=== PATIENT | male | born 1950 | race Caucasian/White ===

== ENCOUNTER 2016-12-21 11:16 | Emergency (ER) | payer MEDICARE, BC ==
[2016-12-21 11:22] VITALS: BP 127/82; PULSE 95; RESP 16; TEMP 98.1
[2016-12-21] MEDS ORDERED: fentaNYL (PF) 50 MCG/ML 2 ML AMP IM STA (12:00)
[2016-12-21] MEDS ORDERED: ONDANSETRON 4 MG/2 ML VIAL IM STA (12:01)
--- NOTE | 2016-12-21 12:03 | ED ---
Back Pain [facility] - General Chief Complaint: Back Pain/Injury Stated Complaint: NERVE PAIN ALL OVER Time Seen by Provider: 12/21/16 11:35 Source: patient Limitations: no limitations - History of Present Illness Initial Comments: This patient's a 66-year-old man who presents to be evaluated for perianal pain. The patient brings paperwork from a pain management clinic, which shows a diagnosis of complex regional pain syndrome (type 2) and of a Tarlov cyst. He states that he is not due to see his new pain management physician which will be Dr. Toscano for about 3 weeks. The patient states that he has been having problems with this pain for a year and that he has had MRIs performed. He does note that he had been on methadone therapy until early October and that this was stopped. Patient believes that the pain has been more notable since the medication was stopped. He states that the pains had limited sleep last night and so he requests some relief in order to rest. The patient denies any new neurologic symptoms. He has not had any change in bladder or bowel control. He is able to walk. No weakness of the legs. He does occasionally get some paresthesias but he describes these as being of both feet and both hands. The patient states that the numbness has been present since he had prostate surgery in 2000. MD Complaint: back pain -: year(s) Similar Symptoms Previously: Yes Place: home Radiation: none Severity: severe Quality: burning, aching Consistency: constant Improves With: none Worsens With: none Associated Symptoms: denies other symptoms - Related Data Home Medications Medication Instructions Recorded Confirmed Aspirin 81 mg PO DAILY 04/23/14 09/22/16 Docusate Sodium [Dulcolax Stool 200 mg PO BID 10/26/14 09/22/16 Softener] Acetaminophen Tab [Tylenol] 1,000 mg PO Q6HR PRN 02/23/15 09/22/16 Gabapentin [Neurontin] 800 mg PO QID 02/23/15 09/22/16 L.acidoph/B.long/L.plant/B.lac 1 cap PO DAILY 02/23/15 09/22/16 [Probiotic Acidophilus Beads] Lactulose 10 gm PO BID PRN 02/23/15 09/22/16 Linaclotide [Linzess] 290 mcg PO AC-BRKFST PRN 02/23/15 09/22/16 Multivitamins, Thera [Multivitamin] 1 tab PO DAILY 02/23/15 09/22/16 Methadone [Dolophine] 5 mg PO Q8H 09/22/16 09/22/16 Previous Rx's Medication Instructions Recorded DULoxetine HCL [Cymbalta] 60 mg PO DAILY #30 capsule. 09/24/16 Nicotine 14Mg/24Hr Patch [Habitrol] 1 patch TRANSDERM DAILY #30 patch 09/24/16 amLODIPine [Norvasc] 10 mg PO DAILY #30 tab 09/24/16 Baclofen [Lioresal] 20 mg PO TID #21 tab 12/21/16 Allergies Allergy/AdvReac Type Severity Reaction Status Date / Time haloperidol [From Haldol] Allergy Dyspnea Verified 12/21/16 11:18 haloperidol lactate Allergy Dyspnea Verified 12/21/16 11:18 [From Haldol] morphine AdvReac Nausea Verified 12/21/16 11:18 Review of Systems ROS Statement: Those systems with pertinent positive or pertinent negative responses have been documented in the HPI. ROS Other: All systems not noted in ROS Statement are negative. Constitutional: Denies: fever, chills Respiratory: Denies: cough, dyspnea Cardiovascular: Denies: chest pain, edema, syncope Gastrointestinal: Denies: abdominal pain, nausea, vomiting, diarrhea, constipation Genitourinary: Denies: dysuria, hematuria Musculoskeletal: Reports: as per HPI, back pain. Denies: arthralgia, myalgia Skin: Denies: rash Neurological: Reports: as per HPI, paresthesias. Denies: headache, weakness Past Medical History Past Medical History: Cancer, Hypertension Additional Past Medical History / Comment(s): RT INGUINAL HERNIA, CHRONIC CONSTIPATION, HX OF POSSIBLE COLITIS & DUODENITIS, HX OF PROSTATE CANCER (2010) . RECENT BLOOD IN URINE AND [facility]ING [facility]. STATES BACK, RECTAL AND SHOULDER PAIN. spondylosis History of Any Multi-Drug Resistant Organisms: None Reported Past Surgical History: Prostate Surgery, Tonsillectomy Additional Past Surgical History / Comment(s): HEMORROIDECTOMY (2012), UVULECTOMY (1994) Past Anesthesia/Blood Transfusion Reactions: No Reported Reaction Past Psychological History: Anxiety Smoking Status: Current every day smoker Past Alcohol Use History: None Reported Additional Past Alcohol Use History / Comment(s): SMOKING 3-4 CIGARETTES PER DAY. Past Drug Use History: Marijuana Additional Drug Use History / Comment(s): PAST HX OF MARIJUANA USE-NONE NOW - Past Family History Brother(s) Family Medical History: Deep Vein Thrombosis (DVT) Additional Family Medical History / Comment(s): STEP BROTHER-DVT'S General Exam Limitations: no limitations General appearance: alert, in no apparent distress Neck exam: Present: normal inspection, full ROM. Absent: tenderness GI/Abdominal exam: Present: soft. Absent: distended, tenderness, guarding, rebound, mass, pulsatile mass Rectal exam: Present: normal inspection, normal rectal tone. Absent: mass, tenderness Extremities exam: Present: normal inspection, full ROM, normal capillary refill. Absent: pedal edema, calf tenderness Back exam: Present: normal inspection. Absent: CVA tenderness (R), CVA tenderness (L), paraspinal tenderness, vertebral tenderness Neurological exam: Present: alert, reflexes normal. Absent: motor sensory deficit Skin exam: Present: warm, dry, intact, normal color. Absent: rash Course Vital Signs 12/21/16 11:18 Temperature 98.1 F Pulse Rate 95 Respiratory 16 Rate Blood Pressure 127/82 O2 Sat by Pulse 95 Oximetry Disposition Clinical Impression: Chronic pain Disposition: HOME SELF-CARE Condition: Fair Instructions: Chronic Back Pain (ED) Prescriptions: Baclofen [Lioresal] 20 mg PO TID #21 tab Referrals: Narda Cunningham III, MD [Primary Care Provider] - 1-2 days
== END 2016-12-21 12:31 | disposition home or self-care (01) ==
LOC: EC 11:16
DX: G89.29 Other chronic pain (principal); M54.9 Dorsalgia, unspecified; M79.2 Neuralgia and neuritis, unspecified; F41.9 Anxiety disorder, unspecified; F17.210 Nicotine dependence, cigarettes, uncomplicated; Z79.82 Long term (current) use of aspirin; Z79.899 Other long term (current) drug therapy; Z88.5 Allergy status to narcotic agent; Z88.8 Allergy status to other drugs, medicaments and biological substances
CPT/HCPCS: 99283; 96372 ×2; J2405; J3010

== ENCOUNTER 2017-01-06 12:56 | Emergency (ER) | payer MEDICARE, BC ==
[2017-01-06 13:36] VITALS: BP 132/81; PULSE 78; RESP 18; TEMP 98.3
--- NOTE | 2017-01-06 15:20 | ED ---
Back Pain HPI - General Chief Complaint: Back Pain/Injury Stated Complaint: pain all over Time Seen by Provider: 01/06/17 14:32 Source: patient, RN notes reviewed Limitations: no limitations - History of Present Illness Initial Comments: Patient is 66-year-old male presents to the emergency room for evaluation of chronic all of her pain and perianal pain. Patient also states he has a Tarlov cyst. Patient states he had prostatectomy done in 2010 and ever since then he' s been having chronic pain in his perianal area, radiating down his legs. Patient states that he had a hemorrhoidectomy done a year later and still continuing to have pain. Patient states that he was on methadone at the [facility] but was kicked off in June due to testing positive for marijuana in his urine. Patient states that he hasn't been any pain medication since. Patient states last time he was here he is given a pain shot and sent home. Patient states that he needs another pain shot to be able to sleep. Patient states he has an appointment with Dr. Toscano on January 20. Patient denies any worsening symptoms. Patient denies any changes in symptoms. Patient denies any numbness or tingling in bilateral legs. Patient denies saddle anesthesia. Patient denies urinary or fecal incontinence. - Related Data Home Medications Medication Instructions Recorded Confirmed Aspirin 81 mg PO DAILY 04/23/14 09/22/16 Docusate Sodium [Dulcolax Stool 200 mg PO BID 10/26/14 09/22/16 Softener] Acetaminophen Tab [Tylenol] 1,000 mg PO Q6HR PRN 02/23/15 09/22/16 Gabapentin [Neurontin] 800 mg PO QID 02/23/15 09/22/16 L.acidoph/B.long/L.plant/B.lac 1 cap PO DAILY 02/23/15 09/22/16 [Probiotic Acidophilus Beads] Lactulose 10 gm PO BID PRN 02/23/15 09/22/16 Linaclotide [Linzess] 290 mcg PO AC-BRKFST PRN 02/23/15 09/22/16 Multivitamins, Thera [Multivitamin 1 tab PO DAILY 02/23/15 09/22/16 (formulary)] Methadone [Dolophine] 5 mg PO Q8H 09/22/16 09/22/16 Previous Rx's Medication Instructions Recorded DULoxetine HCL [Cymbalta] 60 mg PO DAILY #30 capsule. 09/24/16 Nicotine 14Mg/24Hr Patch [Habitrol] 1 patch TRANSDERM DAILY #30 patch 09/24/16 amLODIPine [Norvasc] 10 mg PO DAILY #30 tab 09/24/16 Baclofen [Lioresal] 20 mg PO TID #21 tab 12/21/16 Allergies Allergy/AdvReac Type Severity Reaction Status Date / Time haloperidol [From Haldol] Allergy Dyspnea Verified 12/21/16 11:18 haloperidol lactate Allergy Dyspnea Verified 12/21/16 11:18 [From Haldol] morphine AdvReac Nausea Verified 12/21/16 11:18 Review of Systems ROS Statement: Those systems with pertinent positive or pertinent negative responses have been documented in the HPI. ROS Other: All systems not noted in ROS Statement are negative. Past Medical History Past Medical History: Cancer, Hypertension Additional Past Medical History / Comment(s): RT INGUINAL HERNIA, CHRONIC CONSTIPATION, HX OF POSSIBLE COLITIS & DUODENITIS, HX OF PROSTATE CANCER (2010) . RECENT BLOOD IN URINE AND FOLLOWING [facility]. STATES BACK, RECTAL AND SHOULDER PAIN. spondylosis History of Any Multi-Drug Resistant Organisms: None Reported Past Surgical History: Prostate Surgery, Tonsillectomy Additional Past Surgical History / Comment(s): HEMORROIDECTOMY (2012), UVULECTOMY (1994) Past Anesthesia/Blood Transfusion Reactions: No Reported Reaction Past Psychological History: Anxiety Smoking Status: Current every day smoker Past Alcohol Use History: None Reported Additional Past Alcohol Use History / Comment(s): SMOKING 3-4 CIGARETTES PER DAY. Past Drug Use History: Marijuana Additional Drug Use History / Comment(s): PAST HX OF MARIJUANA USE-NONE NOW - Past Family History Brother(s) Family Medical History: Deep Vein Thrombosis (DVT) Additional Family Medical History / Comment(s): STEP BROTHER-DVT'S General Exam - General Exam Comments Initial Comments: Laying in exam bed, no acute distress. Limitations: no limitations General appearance: alert, in no apparent distress Head exam: Present: atraumatic, normocephalic, normal inspection Eye exam: Present: normal appearance ENT exam: Present: normal exam Neck exam: Present: normal inspection Respiratory exam: Present: normal lung sounds bilaterally. Absent: respiratory distress Cardiovascular Exam: Present: regular rate, normal rhythm, normal heart sounds Extremities exam: Present: normal inspection Back exam: Present: normal inspection, vertebral tenderness (lumbosacral) Neurological exam: Present: alert, oriented X3, CN II-XII intact, normal gait Psychiatric exam: Present: normal affect, normal mood Skin exam: Present: warm, dry, intact, normal color. Absent: rash Course Vital Signs 01/06/17 13:33 Temperature 98.3 F Pulse Rate 78 Respiratory 18 Rate Blood Pressure 132/81 O2 Sat by Pulse 96 Oximetry Medical Decision Making - Medical Decision Making Patient is 66-year-old male presents emergency room for chronic pain. Agreed to give patient a pain shot here and advised him to follow-up with furniture painter. Patient states he understands everything that was discussed with him. Return parameters discussed. Case discussed with Dr. Akins. Disposition Clinical Impression: Chronic pain Disposition: HOME SELF-CARE Condition: Good Instructions: Chronic Back Pain (ED) Additional Instructions: Please follow-up with furniture painter or primary care provider. If any new symptom arises or symptoms worsen,return to ER as soon as possible. Referrals: Narda Cunningham III, MD [Primary Care Provider] - 1-2 days Time of Disposition: 15:23
[2017-01-06] MEDS ORDERED: HYDROmorphone 1 MG/ML 1 ML SYRINGE IM STA (15:22)
[2017-01-06] MEDS ORDERED: ONDANSETRON ODT 4 MG TAB PO STA (15:22)
== END 2017-01-06 15:39 | disposition home or self-care (01) ==
LOC: EC 12:56
DX: M54.5 Low back pain (principal); K62.89 Other specified diseases of anus and rectum; G89.29 Other chronic pain; F17.210 Nicotine dependence, cigarettes, uncomplicated; Z79.82 Long term (current) use of aspirin; Z79.899 Other long term (current) drug therapy; Z88.8 Allergy status to other drugs, medicaments and biological substances; Z88.5 Allergy status to narcotic agent; Z85.46 Personal history of malignant neoplasm of prostate; Z90.79 Acquired absence of other genital organ(s); Z98.890 Other specified postprocedural states
CPT/HCPCS: 99283; 96372; J1170

== ENCOUNTER 2017-01-18 10:20 | Emergency (ER) | payer MEDICARE, BC ==
[2017-01-18 10:38] VITALS: RESP 18
[2017-01-18] MEDS ORDERED: HYDROmorphone 1 MG/ML 1 ML SYRINGE IM STA (12:38)
[2017-01-18] MEDS ORDERED: ONDANSETRON 4 MG ODT STARTER PACK 2 TAB BTL PO STA (12:39)
--- NOTE | 2017-01-18 13:18 | ED ---
General Adult HPI - General Chief complaint: Headache Stated complaint: NERVE PAIN ALL OVER Time Seen by Provider: 01/18/17 11:39 Source: patient, RN notes reviewed, old records reviewed Mode of arrival: wheelchair Limitations: no limitations - History of Present Illness Initial comments: Chief complaint history of present illness 6-year-old male with chronic pain. States she has an the dilation by his chronic pain doctor in 3 days. Patient reports she's had a tumor diagnosed on his sacral area causing discomfort to the legs. He's been [facility]. Any seeing and neurologist about this. Patient is to be on methadone but no longer. Patient states that the pain is chronic, recurrent, migratory type. - Related Data Home Medications Medication Instructions Recorded Confirmed Aspirin 81 mg PO DAILY 04/23/14 09/22/16 Docusate Sodium [Dulcolax Stool 200 mg PO BID 10/26/14 09/22/16 Softener] Acetaminophen Tab [Tylenol] 1,000 mg PO Q6HR PRN 02/23/15 09/22/16 Gabapentin [Neurontin] 800 mg PO QID 02/23/15 09/22/16 L.acidoph/B.long/L.plant/B.lac 1 cap PO DAILY 02/23/15 09/22/16 [Probiotic Acidophilus Beads] Lactulose 10 gm PO BID PRN 02/23/15 09/22/16 Linaclotide [Linzess] 290 mcg PO AC-BRKFST PRN 02/23/15 09/22/16 Multivitamins, Thera [Multivitamin 1 tab PO DAILY 02/23/15 09/22/16 (formulary)] Methadone [Dolophine] 5 mg PO Q8H 09/22/16 09/22/16 Previous Rx's Medication Instructions Recorded DULoxetine HCL [Cymbalta] 60 mg PO DAILY #30 capsule. 09/24/16 Nicotine 14Mg/24Hr Patch [Habitrol] 1 patch TRANSDERM DAILY #30 patch 09/24/16 amLODIPine [Norvasc] 10 mg PO DAILY #30 tab 09/24/16 Baclofen [Lioresal] 20 mg PO TID #21 tab 12/21/16 Hydrocodone/Acetaminophen [[place] 1 each PO Q6HR PRN #16 tab 01/18/17 5-325] Allergies Allergy/AdvReac Type Severity Reaction Status Date / Time haloperidol [From Haldol] Allergy Dyspnea Verified 01/18/17 10:38 haloperidol lactate Allergy Dyspnea Verified 01/18/17 10:38 [From Haldol] morphine AdvReac Nausea Verified 01/18/17 10:38 Review of Systems ROS Statement: Those systems with pertinent positive or pertinent negative responses have been documented in the HPI. Review of systems patient has chronic headaches he had jaw pain yesterday gone today. On-again off-again test wall discomfort on today. No complaint to me GI / problems this time. Chronic perianal discomfort. No trouble having bowel movements. No loss of control of urine or bladder. All systems reviewed. Past medical problems significant for prostate cancer and surgery, hypertension , hiatal hernia repair. She also had tonsillectomy and hemorrhoidectomy. He states MRIs shown that he has a Tarlov cyst. He's been evaluated by neurosurgeon at [facility]. Final disposition still pending. Patient will be following up with his new pain management doctor in 3 days. Requesting relief of discomfort between now and then. Patient reports she has ALLERGIES haloperidol and morphine. He and can take Dilaudid. Smokes marijuana. Only history noncontributory ROS Other: All systems not noted in ROS Statement are negative. Past Medical History Past Medical History: Cancer, Hypertension Additional Past Medical History / Comment(s): RT INGUINAL HERNIA, CHRONIC CONSTIPATION, HX OF POSSIBLE COLITIS & DUODENITIS, HX OF PROSTATE CANCER (2010) . RECENT BLOOD IN URINE AND FO[facility]ING [facility]. STATES BACK, RECTAL AND SHOULDER PAIN. spondylosis History of Any Multi-Drug Resistant Organisms: None Reported Past Surgical History: Prostate Surgery, Tonsillectomy Additional Past Surgical History / Comment(s): HEMORROIDECTOMY (2012), UVULECTOMY (1994) Past Anesthesia/Blood Transfusion Reactions: No Reported Reaction Past Psychological History: Anxiety Smoking Status: Current every day smoker Past Alcohol Use History: None Reported Additional Past Alcohol Use History / Comment(s): SMOKING 3-4 CIGARETTES PER DAY. Past Drug Use History: Marijuana Additional Drug Use History / Comment(s): PAST HX OF MARIJUANA USE-NONE NOW - Past Family History Brother(s) Family Medical History: Deep Vein Thrombosis (DVT) Additional Family Medical History / Comment(s): STEP BROTHER-DVT'S General Exam - General Exam Comments Initial Comments: General: The patient is awake and alert, here with chronic pain migratory in nature with history of complex regional pain syndrome type II for history. Vital signs show temperature 98.6 pulse 88 history rate 18 pulse ox 95% room air blood pressure 130/86. Systolic diastolic noted. Patient will be following up with his pain management doctor soon. Eye: Pupils are equal, round and reactive to light, extra-ocular movements are intact ; there is normal conjunctiva bilaterally. No signs of icterus. Ears, nose, mouth and throat: There are moist mucous membranes . Neck: The neck is supple, there is no tenderness. No complaint of pain. Cardiovascular: There is a regular rate and rhythm. No murmur, rub or gallop is appreciated. Respiratory: Lungs are clear to auscultation, respirations are non-labored, breath sounds are equal. No wheezes, stridor, rales, or rhonchi. Gastrointestinal: Soft, non-distended, non-tender abdomen without masses or organomegaly noted. There is no rebound or guarding present. No CVA tenderness. Bowel sounds are unremarkable. Back: Chronic back pain especially low back pain. Musculoskeletal: Use a cane to ambulate. Neurovascular status to the legs intact. No complaint of difficulty urinating or bowel movements. He does have chronic pain Neurological: Patient denies any changes in his neurological status over previous visits emergency room. He has seen neurosurgeons from [facility]. He'll be following up with local pain management doctor. Skin: Skin is warm and dry and no rashes or lesions are noted. Psychiatric: Cooperative, appropriate mood & affect, normal judgment. Patient depression in the past denies at this time. Limitations: no limitations Course Vital Signs 01/18/17 10:36 Temperature 98.6 F Pulse Rate 88 Respiratory 18 Rate Blood Pressure 130/86 O2 Sat by Pulse 95 Oximetry Medical Decision Making - Medical Decision Making Patient was given one Dilaudid shot. And given pain medication today sees his physician in 3 days. Disposition Clinical Impression: Chronic pain disorder Disposition: HOME SELF-CARE Condition: Fair Instructions: Chronic Pain (ED) Additional Instructions: Follow-up with your family doctor, your pain management doctor as directed and her neurosurgeon. Take medications as directed Prescriptions: Hydrocodone/Acetaminophen [[place] 5-325] 1 each PO Q6HR PRN #16 tab PRN Reason: Pain Time of Disposition: 13:18
[2017-01-18 13:45] VITALS: BP 119/61; PULSE 57; TEMP 97.7
== END 2017-01-18 13:43 | disposition home or self-care (01) ==
LOC: EC 10:20
DX: G89.29 Other chronic pain (principal); R51 Headache; M79.2 Neuralgia and neuritis, unspecified; I10 Essential (primary) hypertension; F41.9 Anxiety disorder, unspecified; F17.200 Nicotine dependence, unspecified, uncomplicated; Z85.46 Personal history of malignant neoplasm of prostate; Z79.82 Long term (current) use of aspirin; Z79.899 Other long term (current) drug therapy; Z88.5 Allergy status to narcotic agent; Z88.8 Allergy status to other drugs, medicaments and biological substances
CPT/HCPCS: 99284; 96372; J1170; S0119

== ENCOUNTER 2017-01-28 12:46 | Emergency (ER) | payer MEDICARE, BC ==
[2017-01-28] MEDS ORDERED: METOCLOPRAMIDE 5 MG/ML 2 ML VIAL IM ONE (14:19)
[2017-01-28] MEDS ORDERED: HYDROmorphone 1 MG/ML 1 ML SYRINGE IM STA (14:19)
--- NOTE | 2017-01-28 14:23 | ED ---
General Adult HPI - General Chief complaint: Back Pain/Injury Stated complaint: Nerve Pain Time Seen by Provider: 01/28/17 13:51 Source: patient, RN notes reviewed Mode of arrival: wheelchair Limitations: no limitations - History of Present Illness Initial comments: Patient is a pleasant 66-year-old male presenting to the emergency department complaining of her back pain. Patient states symptoms have a chronic for over 2 years. Patient was on methadone. Patient requests a shot of Dilaudid and nausea medicine. Patient states when it comes emergency Department this is what he usually receives. Patient did have a meeting with Dr. Toscano recently and has another appointment tomorrow. No weakness. No tenderness. No fevers. Patient has had MRI done previously - Related Data Home Medications Medication Instructions Recorded Confirmed Aspirin 81 mg PO DAILY 04/23/14 01/28/17 Gabapentin [Neurontin] 800 mg PO QID 02/23/15 01/28/17 Lactulose 10 gm PO BID PRN 02/23/15 01/28/17 Linaclotide [Linzess] 290 mcg PO DAILY PRN 02/23/15 01/28/17 Multivitamins, Thera [Multivitamin 1 tab PO DAILY 02/23/15 01/28/17 (formulary)] LORazepam [Ativan] 1 mg PO TID PRN 01/18/17 01/28/17 Ascorbic Acid [Vitamin C] 500 mg PO DAILY 01/28/17 01/28/17 L.acidoph,Paracasei, B.lactis 1 cap PO DAILY 01/28/17 01/28/17 [Probiotic] Previous Rx's Medication Instructions Recorded amLODIPine [Norvasc] 10 mg PO DAILY #30 tab 09/24/16 Allergies Allergy/AdvReac Type Severity Reaction Status Date / Time haloperidol [From Haldol] Allergy Dyspnea Verified 01/28/17 14:05 haloperidol lactate Allergy Dyspnea Verified 01/28/17 14:05 [From Haldol] morphine AdvReac Nausea Verified 01/28/17 14:05 Review of Systems ROS Statement: Those systems with pertinent positive or pertinent negative responses have been documented in the HPI. ROS Other: All systems not noted in ROS Statement are negative. Constitutional: Denies: fever Eyes: Denies: eye pain ENT: Denies: ear pain Respiratory: Denies: cough Cardiovascular: Denies: as per HPI Endocrine: Denies: fatigue Gastrointestinal: Denies: vomiting Genitourinary: Denies: dysuria Musculoskeletal: Reports: back pain Skin: Denies: rash Neurological: Denies: weakness Past Medical History Past Medical History: Cancer, Hypertension Additional Past Medical History / Comment(s): RT INGUINAL HERNIA, CHRONIC CONSTIPATION, HX OF POSSIBLE COLITIS & DUODENITIS, HX OF PROSTATE CANCER (2010) . RECENT BLOOD IN URINE AND FO[facility]ING [facility]. STATES BACK, RECTAL AND SHOULDER PAIN. spondylosis History of Any Multi-Drug Resistant Organisms: None Reported Past Surgical History: Prostate Surgery, Tonsillectomy Additional Past Surgical History / Comment(s): HEMORROIDECTOMY (2012), UVULECTOMY (1994) Past Anesthesia/Blood Transfusion Reactions: No Reported Reaction Past Psychological History: Anxiety, Depression Smoking Status: Current every day smoker Past Alcohol Use History: None Reported Additional Past Alcohol Use History / Comment(s): SMOKING 3-4 CIGARETTES PER DAY. Past Drug Use History: None Reported Additional Drug Use History / Comment(s): PAST HX OF MARIJUANA USE-NONE NOW - Past Family History Brother(s) Family Medical History: Deep Vein Thrombosis (DVT) Additional Family Medical History / Comment(s): STEP BROTHER-DVT'S General Exam Limitations: no limitations General appearance: alert, in no apparent distress Head exam: Present: atraumatic Eye exam: Present: normal appearance, PERRL ENT exam: Present: normal oropharynx Neck exam: Present: normal inspection Respiratory exam: Present: normal lung sounds bilaterally Cardiovascular Exam: Present: regular rate, normal rhythm GI/Abdominal exam: Present: soft. Absent: tenderness Extremities exam: Present: normal inspection, other (Straight leg raise negative bilaterally) Back exam: Present: normal inspection. Absent: tenderness Neurological exam: Present: alert. Absent: motor sensory deficit Psychiatric exam: Present: normal affect, normal mood Skin exam: Absent: rash Course Vital Signs 01/28/17 13:06 Temperature 98.2 F Pulse Rate 76 Respiratory 20 Rate Blood Pressure 144/76 O2 Sat by Pulse 98 Oximetry Medical Decision Making - Medical Decision Making Patient is advised that we are concerned regarding his frequent recent visits for chronic pain. Patient is encouraged to keep his follow-up appointment with Dr. Toscano. Patient is made aware that he will not always be able to receive Dilaudid for chronic pain. Disposition Clinical Impression: Chronic pain Disposition: HOME SELF-CARE Condition: Stable Instructions: Chronic Back Pain (ED) Additional Instructions: Please follow-up with Dr. Toscano tomorrow. Please also follow-up with primary care physician this week. Return for weakness, loss of control of bowel or bladder, worsening symptoms or other concerns. Referrals: Narda Cunningham III, MD [Primary Care Provider] - 1-2 days Time of Disposition: 14:23
[2017-01-28 14:37] VITALS: BP 126/69; PULSE 55; RESP 18; TEMP 98.1
== END 2017-01-28 14:37 | disposition home or self-care (01) ==
LOC: EC 12:46
DX: G89.29 Other chronic pain (principal); M54.9 Dorsalgia, unspecified; F17.210 Nicotine dependence, cigarettes, uncomplicated; Z85.46 Personal history of malignant neoplasm of prostate; Z88.5 Allergy status to narcotic agent; Z88.8 Allergy status to other drugs, medicaments and biological substances; Z79.82 Long term (current) use of aspirin; Z79.899 Other long term (current) drug therapy
CPT/HCPCS: 99283; 96372 ×2; J2765; J1170